=== PATIENT | female | born 1935 | race Caucasian/White ===

== ENCOUNTER → 2017-04-20 | Outpatient (CLI) | payer MEDICARE ==
--- NOTE | 2017-04-20 17:25 | CARD ---
APPROVED REPORT EXAM: Two-dimensional and M-mode echocardiogram with Doppler and color Doppler. INDICATION Dyspnea 2D DIMENSIONS Left Atrium(2D)2.9 (1.6-4.0cm)IVSd1.2 (0.7-1.1cm) Aortic Root(2D)2.7 (2.0-3.7cm)LVDd4.4 (3.9-5.9cm) LVOT Diameter1.9 (1.8-2.4cm)PWd1.2 (0.7-1.1cm) LVDs2.9 (2.5-4.0cm)FS (%) 35.1 % SV56.4 mlLVEF(%)64.6 (>50%) Aortic Valve AoV Peak Anson.212.2cm/sAoV VTI45.3cm AO Peak GR.18.0mmHgLVOT Peak Anson.119.3cm/s LVOT VTI 27.99cmAO Mean GR.10mmHg HOLLY (VMAX)1.03xp0AJO (VTI)1.66cm2 Mitral Valve MV E Xaeandrh99.3cm/sMV DECEL [id number] MV A Gryxdlvr587.3cm/sMV ILT95ix E/A Ratio0.7MV A Prrgcxoi838jd MVA (PHT)2.36cm2 TDI E/Lateral E'10.7E/Medial E'13.9 Pulmonary Valve PV Peak Bfakjjua33.6cm/sPV Peak Grad.4mmHg Tricuspid Valve TR P. Lfxnbrax920nn/sRAP XCYROYMB2wzDj TR Peak Gr.74imNoITSD69cyIa Pulmonary Vein S1 Qiqfojry71.0cm/sD2 Wlztfdef19.7cm/s LEFT VENTRICLE The left ventricle is normal size. There is borderline concentric left ventricular hypertrophy. Left ventricle systolic function is normal. The Ejection Fraction is 55-60%. There is normal LV segmental wall motion. Tissue Doppler imaging reveals mild left ventricular diastolic dysfunction. Transmitral Doppler flow pattern is Grade I-abnormal relaxation pattern. There is no ventricular septal defect vi sualized. RIGHT VENTRICLE The right ventricle is normal size. The right ventricular systolic function is normal. ATRIA The left atrium size is normal. The right atrium size is normal. The interatrial septum is intact wit h no evidence for an atrial septal defect or patent foramen ovale as noted on 2-D or Doppler imaging. AORTIC VALVE The aortic valve is not well visualized. The aortic valve is moderately calcified. Doppler and Color Flow revealed trace aortic regurgitation. Calculated aortic valve area is 1.6 cm2 with maximum pressu re gradient of 18 mmHg and mean pressure gradient of 10 mmHg. Imaging and doppler analysis shows mild to moderate valvular aortic stenosis. MITRAL VALVE Mitral annular calcification is mild to moderate. 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 There is no mitral valve stenosis. Doppler and Color Flow revealed mild mitral regurgitation. TRICUSPID VALVE The tricuspid valve is not well visualized. Doppler and Color Flow revealed mild tricuspid regurgitat ion. The PA pressure was estimated at 25 mmHg. There is no tricuspid valve stenosis. PULMONIC VALVE The pulmonic valve is not well visualized. Doppler and Color Flow revealed no pulmonic valvular regur gitation. There is no pulmonic valvular stenosis. GREAT VESSELS The aortic root is normal in size. Normal pulmonary venous flow (Doppler). The IVC was not visualized . PERICARDIAL EFFUSION There is no evidence of significant pericardial effusion. Critical Notification Critical Value: No <Conclusion> The left ventricle is normal size. Left ventricle systolic function is normal. The Ejection Fraction is 55-60%. There is borderline concentric left ventricular hypertrophy. Calculated aortic valve area is 1.6 cm2 with maximum pressure gradient of 18 mmHg and mean pressure g radient of 10 mmHg. Imaging and doppler analysis shows mild to moderate valvular aortic stenosis. Doppler and Color Flow revealed trace aortic regurgitation. Doppler and Color Flow revealed mild mitral regurgitation. Doppler and Color Flow revealed mild tricuspid regurgitation. The PA pressure was estimated at 25 mmHg.
== END | disposition home or self-care (01) ==
LOC: ECHO 09:39
PROVIDERS: ATTEND Internal Medicine
DX: I08.1 Rheumatic disorders of both mitral and tricuspid valves (principal); R06.00 Dyspnea, unspecified; R60.9 Edema, unspecified
CPT/HCPCS: 93306